=== PATIENT | male | born 1985 | race Caucasian/White ===

== ENCOUNTER 2019-10-13 02:11 | Inpatient (IN) | payer BC, OTHER ==
[~2019-10-13] VITALS: Ht 177.8 cm; Wt 91.6 kg
[2019-10-13] MEDS ORDERED: ONDANSETRON 2MG/ML, 2ML ONE ×2 (02:30→18:50)
[2019-10-13] MEDS ORDERED: ONDANSETRON 2MG/ML, 2ML IVPush ONE (02:30)
[2019-10-13] MEDS ORDERED: SODIUM CHLORIDE 0.9% 1,000ML IVBOLUS ONE (02:30)
[2019-10-13] MEDS ORDERED: SODIUM CHLORIDE FLUSH 10ML SYR IVF ONE (02:30)
[2019-10-13] MEDS ORDERED: HYDROmorphone 1 MG/ML, 1ML INJ ONE ×3 (02:30→06:16)
[2019-10-13] MEDS: HYDROmorphone 2 MG/ML, 1ML IVPush PRN ×2 (02:38→04:24)
[2019-10-13 02:57] LABS: BASOPHILS # (AUTO) 0.04 x10^3/uL (0-0.1); BASOPHILS % (AUTO) 0 % (0-1); EOSINOPHILS # (AUTO) 0.07 x10^3/uL (0-0.4); EOSINOPHILS % (AUTO) 1 % (1-7); LYMPHOCYTES # (AUTO) 1.83 x10^3/uL (1-3.4); LYMPHOCYTES % (AUTO) 14 % (22-44); MD NO; MEAN CORPUSCULAR HEMOGLOBIN 30.8 pg (27.5-34.5); MEAN CORPUSCULAR HGB CONC 33.7 g/dL (33.2-36.2); MEAN CORPUSCULAR VOLUME 91.2 fL (81-97); MEAN PLATELET VOLUME 8.8 fL (7.4-10.4); MONOCYTES # (AUTO) 0.39 x10^3/uL (0.2-0.8); MONOCYTES % (AUTO) 3 % (2-9); NEUTROPHILS # (AUTO) 10.65 x10^3/uL (1.8-6.8); NEUTROPHILS % (AUTO) 82 % (42-75); PLATELET COUNT 280 x10^3/uL (130-400); RED BLOOD COUNT 5.25 x10^6/uL (4.38-5.82); RED CELL DISTRIBUTION WIDTH 12.5 % (9.4-14.8)
--- NOTE | 2019-10-13 02:58 | NUR ---
PT PRESENTS WITH RUQ ABD PAIN TONIGHT WITH N/V. PT WITH HX OF GALL STONES, WAS SUPPOSED TO HAVE SURGERY BUT IT WAS POSTPONED S/T NO SCHEDULING OF NON-EMERGENT SURGERIES. PT STATES THIS IS THE WORST THE PAIN HAS BEEN. IV ACCESS OBTAINED AND LABS SENT. PT MEDICATED PER SEP. VSS. CALL LIGHT IN REACH.
--- NOTE | 2019-10-13 03:01 | NUR ---
PT TO [facility]IA [facility]
[2019-10-13 03:08] LABS: ALANINE AMINOTRANSFERASE 56 U/L (12-78); ALBUMIN 4.6 g/dL (3.4-5.0); ANION GAP 6 mmol/L (5-15); CALCIUM 9.6 mg/dL (8.5-10.1); CHLORIDE 104 mmol/L (98-107); CREATININE 1.29 mg/dL (0.7-1.3)
[2019-10-13 03:11] LABS: ALKALINE PHOSPHATASE 61 U/L (45-117); BILIRUBIN,TOTAL 0.6 mg/dL (0.2-1.0); TOTAL PROTEIN 8.4 g/dL (6.4-8.2)
--- NOTE | 2019-10-13 03:30 | NUR ---
PT RETURNED FROM [place]. STATES PAIN IS NOW 3/10 AND TOLERABLE. VSS. NO NEEDS EXPRESSED. AWAITING TEST RESULTS. CALL LIGHT IN REACH.
--- NOTE | 2019-10-13 04:15 | NUR ---
PT IN CT VIA [facility]
[2019-10-13] MEDS ORDERED: OMNIPAQUE 350 MG/ML, 100ML BOTTLE ONE (04:24)
--- NOTE | 2019-10-13 04:27 | NUR ---
PT RETURNED FROM CT. REQUESTING FOR MORE PAIN MEDS S/T PAIN NOW 01/12. PT MEDICATED PER SEP. VSS. CALL LIGHT IN REACH.
--- NOTE | 2019-10-13 05:32 | NUR ---
REPORT TO ANKIT PATTERSON.
--- NOTE | 2019-10-13 05:37 | NUR ---
REPORT FROM BESSIE PATTERSON. PT RESTING WITH NO NEEDS AT THIS TIME. FAMILY AT [facility]. CALL LIGHT IN REACH
[2019-10-13] MEDS ORDERED: ATOR40TA PO (06:11)
[2019-10-13] MEDS ORDERED: HYDROmorphone 2 MG/ML, 1ML IVPush PRN ×2 (06:30→20:00)
[2019-10-13] MEDS ORDERED: ACETAMINOPHEN 325 MG TABLET PO PRN ×2 (07:00→20:00)
[2019-10-13 07:30] LABS: CHOL/HDL RATIO 4.6; LDL/HDL RATIO 2.8 (0.5-3.0)
[2019-10-13] MEDS: SODIUM CHLORIDE 0.9% 1,000 ML IV SCH ×2 (07:57→20:00)
[2019-10-13] MEDS: morphine SULFATE 10 MG/ML, 1ML IVPush PRN ×2 (13:43→21:22)
[2019-10-13 14:19] VITALS: BP 125/57
[2019-10-13 15:59] LABS: HCT (SEDRATE) 43.3 % (39.2-51.8)
[2019-10-13] MEDS: AMPICILLIN/SULBACTAM 3 GM in SODIUM CHLORIDE 0.9% 100 ML IV SCH ×2 (16:48→22:07)
[2019-10-13] MEDS ORDERED: BUPIVACAINE/PF-EPI 0.25% 1:200K ONE (16:55)
[2019-10-13] MEDS ORDERED: FENTANYL PF 250 MCG/5ML ONE (18:47)
[2019-10-13] MEDS ORDERED: MIDAZOLAM 1 MG/ML, 2ML ONE (18:47)
[2019-10-13] MEDS ORDERED: SUCCINYLCHOLINE 20 MG/ML, 10ML ONE (18:50)
[2019-10-13] MEDS ORDERED: PROPOFOL 10 MG/ML, 20ML ONE (18:50)
[2019-10-13] MEDS ORDERED: ROCURONIUM 10 MG/ML,10ML ONE (18:50)
[2019-10-13] MEDS ORDERED: SUGAMMADEX 200 MG/2 ML IVPush ONE (18:50)
[2019-10-13] MEDS ORDERED: DEXAMETHASONE 4 MG/ML, 1ML ONE (18:50)
[2019-10-13] MEDS ORDERED: CEFAZOLIN 1,000 MG ONE (18:50)
[2019-10-13] MEDS ORDERED: KETOROLAC 30 MG/1 ML ONE (18:50)
[2019-10-13] MEDS ORDERED: MEPERIDINE/PF 25MG/ML,1ML ONE (19:56)
[2019-10-13] MEDS ORDERED: LABETALOL 5MG/ML, 20ML IV PRN (20:00)
[2019-10-13] MEDS ORDERED: hydrALAzine 20 MG/ML, 1ML IV PRN (20:00)
[2019-10-13] MEDS ORDERED: LORazepam 2 MG/ML, 1ML IVPush PRN (20:00)
[2019-10-13] MEDS ORDERED: OXYcodone 5 MG/5 ML ORAL.SOL UDC PO PRN (20:00)
[2019-10-13] MEDS ORDERED: ONDANSETRON 2MG/ML, 2ML IV PRN ×2 (20:00→21:30)
[2019-10-13] MEDS ORDERED: FENTANYL PF 100 MCG/2ML ONE (20:02)
[2019-10-13] MEDS ORDERED: OXYcodone 5 MG/5 ML ORAL.SOL UDC ONE (20:02)
[2019-10-13] MEDS: FENTANYL PF 100 MCG/2ML IV PRN ×2 (20:13→20:18)
[2019-10-13] MEDS ORDERED: MEPERIDINE/PF 25MG/ML,1ML IVPush PRN (20:30)
[2019-10-13 20:50] VITALS: BP 130/69
[2019-10-13] MEDS ORDERED: ACETAMINOPHEN 500 MG TABLET PO PRN (21:30)
[2019-10-14] MEDS: MORPHINE SULFATE 4 MG/ML, 1ML IV PRN ×3 (00:24→06:49)
[2019-10-14 00:41] VITALS: BP 106/64
[2019-10-14] MEDS ORDERED: ENOXAPARIN 40 MG/0.4 ML SQ SCH (02:00)
[2019-10-14] MEDS: LACTATED RINGERS 1,000 ML IV SCH ×2 (02:20→09:07)
[2019-10-14] MEDS: AMPICILLIN/SULBACTAM 3 GM in SODIUM CHLORIDE 0.9% 100 ML IV SCH ×3 (04:01→15:58)
[2019-10-14 06:23] LABS: ALANINE AMINOTRANSFERASE 85 U/L (12-78); ALBUMIN 3.4 g/dL (3.4-5.0); ANION GAP 7 mmol/L (5-15); BASOPHILS % (AUTO) 0 % (0-1); CALCIUM 8.5 mg/dL (8.5-10.1); CHLORIDE 107 mmol/L (98-107); CREATININE 1.04 mg/dL (0.7-1.3); EOSINOPHILS % (AUTO) 0 % (1-7); LYMPHOCYTES # (AUTO) 0.59 x10^3/uL (1-3.4); LYMPHOCYTES % (AUTO) 8 % (22-44); MD NO; MEAN CORPUSCULAR HGB CONC 34.7 g/dL (33.2-36.2); MEAN CORPUSCULAR VOLUME 89.3 fL (81-97); MEAN PLATELET VOLUME 8.9 fL (7.4-10.4); MONOCYTES # (AUTO) 0.27 x10^3/uL (0.2-0.8); MONOCYTES % (AUTO) 4 % (2-9); NEUTROPHILS # (AUTO) 6.14 x10^3/uL (1.8-6.8); NEUTROPHILS % (AUTO) 88 % (42-75); PLATELET COUNT 210 x10^3/uL (130-400); RED CELL DISTRIBUTION WIDTH 12.6 % (9.4-14.8)
[2019-10-14 06:26] LABS: ALKALINE PHOSPHATASE 48 U/L (45-117); BILIRUBIN,TOTAL 0.7 mg/dL (0.2-1.0); TOTAL PROTEIN 6.7 g/dL (6.4-8.2)
[2019-10-14 06:32] VITALS: BP 134/69
[2019-10-14] MEDS: HYDROcodone/APAP 5/325 TABLET PO PRN ×3 (09:07→15:58)
[2019-10-14] MEDS ORDERED: HYDR-3237 PO (14:23)
[2019-10-14] MEDS ORDERED: AMOX1TAB64 PO (14:23)
[2019-10-14 15:11] VITALS: BP 151/73
== END 2019-10-14 16:05 | disposition home or self-care (01) | DRG 418 ==
LOC: ED 04:43 → EDIP 06:08 → 3N 06:48
PROVIDERS: ADMIT Internal Medicine Infectious Disease; ATTEND Internal Medicine Infectious Disease
PROC: 0FT44ZZ Resection of Gallbladder, Percutaneous Endoscopic Approach (ICD-10-PCS; principal; 2019-10-13 17:30)
DX: K80.00 Calculus of gallbladder with acute cholecystitis without obstruction (principal); K82.1 Hydrops of gallbladder; E66.3 Overweight; E78.5 Hyperlipidemia, unspecified; E86.0 Dehydration; Z83.3 Family history of diabetes mellitus; Z79.899 Other long term (current) drug therapy; Z68.29 Body mass index [BMI] 29.0-29.9, adult
CPT/HCPCS: 36415; 74177; 76700; 78226; 80053; 80061; 83690; 85025; 85651; 86140; 88304; 96361; 96374; 96375; 96376; 99285; G0378; J0295; J0690; J1100; J1170; J1650; J1885; J2250; J2405; J2704; J3010; Q9967; A9537; J0330; J2175; J2270; J7030; J7120